=== PATIENT | female | born 1970 | race Caucasian/White ===

== ENCOUNTER → 2021-01-29 | Outpatient (CLI) | payer MEDICARE, OTHER ==
[~2021-01-29] MED LIST: ADULT LOW DOSE81 MG PO; ASPIRIN 325MG325 MG PO; ASPIRIN EC325 MG PO; ASPIRIN EC81 MG PO; BENADRYL A12.5 MG/5 PO; CARVEDILOL12.5 MG PO; CEFUROXIME250 MG PO; CLEOCIN HCL300 MG PO; CLINDAMYCIN HC300 MG PO; COLACE 100MG C100 MG PO; COREG 3.125M3.125 MG PO; DIFLUCAN150 MG PO; DULCOLAX10 MG PR; ELIQUIS5 MG PO; FERROUS SULFAT325 M2 PO; GAS-X125 M1 PO; GRALISE300 MG PO; HEALTHYLAX17 GM PO; IBUPROFEN600 MG PO; IMDUR ER TAB 3030 MG PO; JUVEN PACKET1 EACH PO; KEFLEX CAP 250250 MG PO; KEFLEX CAP 500500 MG PO; LASIX20 MG PO; LIORESAL TAB 1010 MG PO; MAXIPIME2 GM IV; MEGACE 400400 MG/10 PO; MILK OF MA400 MG/5 M PO; NORCO 5-325 TA1 EACH PO; NORCO 7.5-3251 EACH PO; NYSTOP60 GM TOP; PERCOCET 10-321 EACH PO; PERCOCET 5/325 T1 EA PO; PHENERGAN 25 MG25 M1 PO; PLAVIX75 MG PO; PREDNISONE10 MG PO; PREVACID30 MG PO; PROTONIX40 MG PO; PYRIDIUM100 MG PO; RANEXA1000 MG PO; REGLAN10 MG PO; ROXICODONE TAB 55 MG PO; SENNA LAX8.6 MG PO; THERAGRAN M TAB1 EA PO; TYLENOL W/CODEIN1 E1 PO; VISTARIL25 MG PO; VITAMIN D250000 UNIT PO; VYTORIN 10-401 EACH PO; ZESTRIL5 MG PO; ZETIA 10 MG TAB10 MG PO; ZETIA10 MG PO; ZOCOR40 MG PO; ZOFRAN4 MG PO; [UNRECOGNIZED DRUG - OTHER] PO
== END ==
LOC: CT 12-28 08:30
DX: I60.9 Nontraumatic subarachnoid hemorrhage, unspecified (principal)
CPT/HCPCS: 36415; 70496; 82565; Q9967

== ENCOUNTER → 2021-08-03 | Outpatient (CLI) | payer MEDICARE, OTHER | LOC: KOH-I 08:30 | DX: S06.2X0A Diffuse traumatic brain injury without loss of consciousness, initial encounter (principal); M25.561 Pain in right knee; M25.562 Pain in left knee | CPT/HCPCS: 70450; 73562 ==

== ENCOUNTER → 2022-02-04 | Outpatient (CLI) | payer MEDICARE, OTHER | LOC: MAMO 12-27 09:30 | DX: Z12.31 Encounter for screening mammogram for malignant neoplasm of breast (principal) | CPT/HCPCS: 77063; 77067 ==

== ENCOUNTER → 2022-04-22 | Outpatient (CLI) | payer MEDICARE, OTHER | LOC: KOH-I 13:30 | DX: J01.11 Acute recurrent frontal sinusitis (principal); R51.9 Headache, unspecified | CPT/HCPCS: 70450 ==